=== PATIENT | female | born 1950 | race Caucasian/White ===

== ENCOUNTER 2021-01-11 14:49 | Inpatient (IN) | payer MEDICARE ==
[2021-01-11 15:17] LABS: #Monocytes 0.6 10x3/uL (0.0-1.1); #Neutrophils 5.3 10x3/uL (1.5-8.4); %Basophils 0.3 % (0.0-2.0); %Eosinophils 0.4 % (0.0-6.0); %Lymphocytes 20.8 % (18.0-47.0); %Monocytes 7.7 % (0.0-10.0); %Neutrophils 70.5 % (40.0-75.0); Hemoglobin 11.8 g/dL (12.0-15.5); Mean Corpuscular HGB CONC 34.2 g/dL (32.0-36.0); Mean Corpuscular Hemoglobin 30.7 pg (27.0-33.0); Mean Corpuscular Volume 89.8 fl (81.6-98.3); Mean Platelet Volume 8.9 fl (7.4-10.4); Platelet Count 299 10x3/uL (150-450); Red Blood Cell (RBC) Count 3.84 10x6/uL (3.90-5.03); White Blood Cell (WBC) Count 7.5 10x3/uL (3.5-10.5)
[2021-01-11 15:36] LABS: ALT (SGPT) 24 U/L (8-55); AST (SGOT) 31 U/L (5-34); Albumin 3.8 g/dL (3.4-4.8); Alkaline Phosphatase 43 U/L (40-110); Anion Gap 16 mmol/L (10-20); BUN (Urea Nitrogen) 6 mg/dL (9.8-20.1); Bilirubin, Total 1.8 mg/dL (0.2-1.2); Calc. Creatinine Clearance 0 mL/min (70-130); Calcium 8.6 mg/dL (7.8-10.44); Carbon Dioxide 27 mmol/L (23-31); Chloride 101 mmol/L (98-107); Glucose 110 mg/dL (83-110); Protein, Total 6.8 g/dL (5.8-8.1); Sodium 141 mmol/L (136-145)
[2021-01-11] MEDS ORDERED: Azithromycin 500 MG VIAL ONE (18:20)
[2021-01-11] MEDS ORDERED: Aspirin Chewable 81 MG TAB ONE (18:20)
[2021-01-11] MEDS ORDERED: Potassium Chloride 20 MEQ TAB ONE (18:20)
[2021-01-11] MEDS ORDERED: Acetaminophen 500 MG TAB ONE (18:46)
[2021-01-11] MEDS ORDERED: Zolpidem Tartrate 5 MG TAB PO PRN (19:21)
[2021-01-11] MEDS ORDERED: Ondansetron PF 4 MG/2 ML Vial IVP PRN (19:21)
[2021-01-11] MEDS ORDERED: Calcium Carbonate 500 MG ChewTAB PO PRN (19:21)
[2021-01-11] MEDS ORDERED: Guaifenesin DM 100-10/5 ML UDCUP PO PRN (19:21)
[2021-01-11] MEDS ORDERED: Ventolin HFA Inhaler 60 PUFF INHALER INH PRN (19:24)
[2021-01-11] MEDS ORDERED: Potassium Chloride 20 MEQ TAB PO SCH (21:00)
[2021-01-11 21:14] VITALS: BMI 34.7
[2021-01-11] MEDS: Metoprolol Tartrate 25 MG TAB PO SCH (21:55)
[2021-01-11] MEDS: Enoxaparin Sodium 40 MG/0.4 ML SYRINGE SC SCH (21:55)
[2021-01-11] MEDS: Cholecalciferol 1,000 UNITS (25 MCG) TAB PO SCH (21:55)
[2021-01-11] MEDS: Benzonatate 100 MG CAP PO SCH (21:55)
[2021-01-11] MEDS: Dexamethasone 4 mg/ml Vial SLOW IVP SCH (21:56)
[2021-01-11 23:51] LABS: Bilirubin Neg (Negative); Blood, Urine 10 (Negative); Clarity Clear (Clear); Glucose, Urine (Dipstick) Normal (Negative); Ketone, Urine Negative (Negative); Leukocyte 500 (Negative); Nitrite Negative (Negative); Protein, Urine (Dipstick) Negative (Neg-Trace); Specific Gravity, Urine 1.005 (1.002-1.036); Urobilinogen Normal mg/dL (Less than 2)
[2021-01-12 00:12] LABS: Strep pneumo Urine Ag NEGATIVE (NEGATIVE)
[2021-01-12 00:13] LABS: Legionella Urinary Ag Negative (Negative); Urine Culture Reflex No No
[2021-01-12 00:25] LABS: Bacteria/HPF 2+ HPF (None Seen); RBC/HPF 0-3 HPF (0-3)
[2021-01-12 06:21] LABS: Anion Gap 12 mmol/L (10-20); BUN (Urea Nitrogen) 6 mg/dL (9.8-20.1); CRP (Inflammatory) 14.45 mg/dL (= or < 0.5); Calc. Creatinine Clearance 125 mL/min (70-130); Calcium 8.9 mg/dL (7.8-10.44); Carbon Dioxide 26 mmol/L (23-31); Chloride 105 mmol/L (98-107); Glucose 193 mg/dL (83-110); Magnesium 2.3 mg/dL (1.6-2.6); Sodium 139 mmol/L (136-145)
[2021-01-12 06:29] LABS: #Monocytes 0.1 10x3/uL (0.0-1.1); #Neutrophils 3.6 10x3/uL (1.5-8.4); %Basophils 0.2 % (0.0-2.0); %Lymphocytes 16.4 % (18.0-47.0); %Monocytes 2.4 % (0.0-10.0); %Neutrophils 80.3 % (40.0-75.0); Hemoglobin 11.2 g/dL (12.0-15.5); Mean Corpuscular HGB CONC 33.2 g/dL (32.0-36.0); Mean Corpuscular Hemoglobin 29.2 pg (27.0-33.0); Mean Corpuscular Volume 87.8 fl (81.6-98.3); Mean Platelet Volume 9.5 fl (7.4-10.4); Platelet Count 271 10x3/uL (150-450); RBC Distribution Width 12.3 % (11.5-14.5); Red Blood Cell (RBC) Count 3.84 10x6/uL (3.90-5.03); White Blood Cell (WBC) Count 4.5 10x3/uL (3.5-10.5)
[2021-01-12] MEDS: Ascorbic Acid 500 mg Chewable Tablet PO SCH (09:06)
[2021-01-12] MEDS: Metoprolol Tartrate 25 MG TAB PO SCH ×2 (09:06→20:33)
[2021-01-12] MEDS: Zinc Gluconate 50 MG TAB PO SCH (09:07)
[2021-01-12] MEDS: Benzonatate 100 MG CAP PO SCH ×3 (09:07→20:33)
[2021-01-12] MEDS: Aspirin 81 mg Enteric Coated Tablet PO SCH (09:07)
[2021-01-12] MEDS: Azithromycin 250 MG TAB PO SCH (09:07)
[2021-01-12] MEDS: Enoxaparin Sodium 40 MG/0.4 ML SYRINGE SC SCH ×2 (09:07→20:33)
[2021-01-12] MEDS: Dexamethasone 4 mg/ml Vial SLOW IVP SCH (20:32)
[2021-01-12] MEDS: Cholecalciferol 1,000 UNITS (25 MCG) TAB PO SCH (20:33)
[2021-01-13] MEDS: Benzonatate 100 MG CAP PO SCH ×3 (08:11→20:12)
[2021-01-13] MEDS: Azithromycin 250 MG TAB PO SCH (08:11)
[2021-01-13] MEDS: Aspirin 81 mg Enteric Coated Tablet PO SCH (08:11)
[2021-01-13] MEDS: Ascorbic Acid 500 mg Chewable Tablet PO SCH (08:11)
[2021-01-13] MEDS: Enoxaparin Sodium 40 MG/0.4 ML SYRINGE SC SCH ×2 (08:11→20:30)
[2021-01-13] MEDS: Zinc Gluconate 50 MG TAB PO SCH (08:12)
[2021-01-13] MEDS: Acetaminophen 325 MG TAB PO PRN ×2 (08:50→18:29)
[2021-01-13] MEDS: Metoprolol Tartrate 25 MG TAB PO SCH (13:06)
[2021-01-13] MEDS: Cholecalciferol 1,000 UNITS (25 MCG) TAB PO SCH (20:12)
[2021-01-13] MEDS: Dexamethasone 4 mg/ml Vial SLOW IVP SCH (20:12)
[2021-01-14] MEDS: Aspirin 81 mg Enteric Coated Tablet PO SCH (08:40)
[2021-01-14] MEDS: Azithromycin 250 MG TAB PO SCH (08:40)
[2021-01-14] MEDS: Zinc Gluconate 50 MG TAB PO SCH (08:40)
[2021-01-14] MEDS: Ascorbic Acid 500 mg Chewable Tablet PO SCH (08:40)
[2021-01-14] MEDS: Benzonatate 100 MG CAP PO SCH ×2 (08:40→18:00)
[2021-01-14] MEDS: Enoxaparin Sodium 40 MG/0.4 ML SYRINGE SC SCH ×2 (08:41→20:37)
[2021-01-14 08:59] LABS: Anion Gap 15 mmol/L (10-20); BUN (Urea Nitrogen) 12 mg/dL (9.8-20.1); Calc. Creatinine Clearance 110 mL/min (70-130); Calcium 8.9 mg/dL (7.8-10.44); Carbon Dioxide 27 mmol/L (23-31); Chloride 101 mmol/L (98-107); Glucose 158 mg/dL (83-110); Magnesium 2.3 mg/dL (1.6-2.6); Sodium 139 mmol/L (136-145)
[2021-01-14] MEDS ORDERED: Benzonatate 100 MG CAP PO PRN (15:59)
[2021-01-14] MEDS: Dexamethasone 4 mg/ml Vial SLOW IVP SCH (20:36)
[2021-01-14] MEDS: Cholecalciferol 1,000 UNITS (25 MCG) TAB PO SCH (20:36)
[2021-01-14] MEDS ORDERED: Milk Of Magnesia 30 ML UDCUP PO SCH (21:15)
[2021-01-15 05:23] VITALS: TEMP 98.3
[2021-01-15] MEDS: Enoxaparin Sodium 40 MG/0.4 ML SYRINGE SC SCH (10:41)
[2021-01-15] MEDS: Aspirin 81 mg Enteric Coated Tablet PO SCH (10:42)
[2021-01-15] MEDS: Zinc Gluconate 50 MG TAB PO SCH (10:42)
[2021-01-15] MEDS: Ascorbic Acid 500 mg Chewable Tablet PO SCH (10:42)
[2021-01-15 11:49] VITALS: BP 158/70
== END 2021-01-15 11:18 | disposition home or self-care (01) | DRG 177 ==
LOC: CSHERS 14:49 → CSHTELE 21:08
PROVIDERS: ADMIT Student in an Organized Health Care Education/Training Program; ATTEND Family Medicine
PROC: 8E0ZXY6 Isolation (ICD-10-PCS; principal; 2021-01-11)
DX: U07.1 COVID-19 (principal); J12.82 Pneumonia due to coronavirus disease 2019; J96.01 Acute respiratory failure with hypoxia; E87.6 Hypokalemia; Z90.710 Acquired absence of both cervix and uterus; Z83.3 Family history of diabetes mellitus; R00.1 Bradycardia, unspecified; R07.89 Other chest pain; Z88.5 Allergy status to narcotic agent; Z88.8 Allergy status to other drugs, medicaments and biological substances; Z87.440 Personal history of urinary (tract) infections; Z79.52 Long term (current) use of systemic steroids; Z79.899 Other long term (current) drug therapy
CPT/HCPCS: 36415; 71275; 80048; 80053; 81001; 82728; 83735; 83880; 84443; 84484; 85025; 85379; 86140; 87086; 87449; 87899; 93005; 93010; 93306; 94760; 96365; J0456; J1100; J1650